=== PATIENT | male | born 1995 | race Two or more races ===

== ENCOUNTER 2022-08-26 23:38 | Emergency (ER) | payer MEDICAID, OTHER ==
[~2022-08-26] VITALS: Ht 180.3 cm; Wt 240.0 kg
[2022-08-27 00:29] VITALS: BP 127/80
== END 2022-08-27 03:10 | disposition left against medical advice (07) ==
LOC: ER 23:41
DX: J02.9 Acute pharyngitis, unspecified (principal); Z53.21 Procedure and treatment not carried out due to patient leaving prior to being seen by health care provider